=== PATIENT | male | born 1945 | race Caucasian/White ===

== ENCOUNTER → 2021-06-30 14:42 | Outpatient (CLI) | payer OTHER, SELFPAY ==
--- NOTE | 2021-06-30 14:50 | DI.US.S_ITS ---
PROCEDURE: US ABDOMEN LIMITED INDICATIONS: LEFT LOWER QUADRANT MASS ?FEMORAL OR INGUINAL HERNIA TECHNIQUE: Real-time focused scanning was performed of the abdomen, with image documentation. COMPARISON: None. FINDINGS: Partially reducible fat and possible bowel containing left inguinal hernia. IMPRESSION: Partially reducible left inguinal hernia. Dictated by: Jose Clifford [facility] Interpreted: Jakub Sultana MD on 06/30/2021 at 17:02 Transcribed by: CHUY on 06/30/2021 at 17:02 Approved by: Jakub Sultana M.D. on 06/30/2021 at 17:15
== END ==
PROVIDERS: PCP Physician Assistant; Referring Provider Physician Assistant; Visit Provider Physician Assistant
DX: K40.90 Unilateral inguinal hernia, without obstruction or gangrene, not specified as recurrent (principal)
CPT/HCPCS: 76705

== ENCOUNTER → 2021-07-16 10:56 | Outpatient (CLI) | payer OTHER, SELFPAY ==
--- NOTE | 2021-07-16 11:38 | DI.CT.S_ITS ---
PROCEDURE: CT ABDOMEN PELVIS W CON INDICATIONS: Unilateral inguinal hernia, without obstruction or TECHNIQUE: After the administration of oral and intravenous contrast, axial sections were acquired from the lung bases to the pubic symphysis. Coronal and sagittal reformats were performed. For radiation dose reduction, the following was used: automated exposure control, adjustment of mA and/or kV according to patient size. COMPARISON:None. FINDINGS: ABDOMEN: Lung bases: Scattered subsegmental atelectasis and/or scarring. No focal consolidation. Heart: No pericardial effusion. Mildly enlarged. Liver: Hepatic steatosis. Gallbladder: Decompressed otherwise unremarkable. Bile ducts: Normal. Pancreas: Normal. Spleen: Normal. Adrenals: Normal. Kidneys and Ureters: Simple appearing left renal cyst measuring 3.5 cm. No hydronephrosis. Ureters appear decompressed. Stomach and duodenum: Normal. Bowel: No evidence of bowel obstruction. Appendix is not clearly identified however no suspicious pericecal inflammatory changes are seen. Other: There is moderate stool. Abdominal nodes: Normal. Aorta and IVC: Normal in size. Ventral wall: Normal. PELVIS: Bladder and reproductive: Unremarkable. Inguinal region: 7 cm left inguinal hernia containing fat and bowel loops. No definite transition point to suggest associated bowel obstruction. Technically cannot exclude incarceration. Small fat containing right inguinal hernia. Pelvic nodes: Normal. Bones: No suspicious bony lesions. No vertebral body compression fractures. Diffuse spondylytic changes and facet disease. IMPRESSION: Large left inguinal hernia which contains fat and bowel loops. No definite evidence of bowel obstruction seen at this time. Hepatic steatosis Mild cardiomegaly Simple appearing left renal cyst Dictated by: Jamie Gan M.D. on 07/16/2021 at 13:12 Approved by: Jamie Gan M.D. on 07/16/2021 at 13:37
== END ==
PROVIDERS: PCP Physician Assistant; Referring Provider Physician Assistant; Visit Provider Physician Assistant
DX: K40.90 Unilateral inguinal hernia, without obstruction or gangrene, not specified as recurrent (principal); K76.0 Fatty (change of) liver, not elsewhere classified; I51.7 Cardiomegaly; N28.1 Cyst of kidney, acquired
CPT/HCPCS: 74177